=== PATIENT | female | born 1945 | race Caucasian/White ===

== ENCOUNTER 2020-06-30 11:19 | Emergency (ER) | payer MEDICARE, BC ==
--- NOTE | 2020-06-30 11:54 | EDM.PDOC ---
ED HPI GENERAL MEDICAL PROBLEM - General Stated Complaint: AMBULANCE Time Seen by Provider: 06/30/20 11:35 Source of Information: Reports: Patient, Family () History Limitations: Reports: Altered Mental Status - History of Present Illness INITIAL COMMENTS - FREE TEXT/NARRATIVE: This 74 yo female patient was brought to the ED by [facility] due to increased confusion, altered mentation, nausea and pain in her lower back. The patient's reports she started to become confused today and stopped answering questions today also. 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 The patient finished her 15th treatment last week. The patient's reports the patient has been getting worse and worse since her last treatment due to increased nausea. Since last week, the patient has gotten IV fluids and IV potassium, but continues to be ill. The reports he last gave her nausea medications last night. EMS did given her morphine and zofran for her back and right hip pain as well as for nausea. The patient is very delayed at answering questions and very restless while in the bed. The patient was seen in [facility] yesterday, labs were drawn and IV fluid/nausea medications were given. The patient's called the clinic today and was advised to call the ambulance to come to the ED. The patient sees Dr. Diaz with [facility]. Onset: Unknown/Unsure Duration: Day(s):, Constant, Getting Worse Location: Reports: Generalized Quality: Reports: Other Severity: Moderate Improves with: Reports: None Worsens with: Reports: None Context: Reports: Other Associated Symptoms: Reports: No Other Symptoms - Related Data Allergies Allergy/AdvReac Type Severity Reaction Status Date / Time No Known Allergies Allergy Verified 06/30/20 11:38 Home Meds: Home Meds Ascorbate Calcium [Vitamin C] 500 mg PO DAILY 03/07/18 [History] Aspirin 81 mg PO DAILY 03/07/18 [History] Calcium Citrate/Vitamin D3 [Calcium Citrate - Vit D Caplet] 1 tab PO DAILY 03/07/18 [History] Cholecalciferol (Vitamin D3) [Vitamin D3] 2,000 unit PO DAILY 03/07/18 [History] Ferrous Sulfate 325 mg PO TID 03/07/18 [History] Levothyroxine Sodium 88 mcg PO DAILY 03/07/18 [History] Potassium Chloride [Klor-Con M20] 20 meq PO DAILY 03/07/18 [History] atorvaSTATin [Lipitor] 40 mg PO DAILY 03/07/18 [History] hydroCHLOROthiazide [Hydrochlorothiazide] 25 mg PO DAILY 03/07/18 [History] metFORMIN HCl [Metformin HCl] 1,000 mg PO BID 03/07/18 [History] Metoprolol Succinate 50 mg PO DAILY 03/09/18 [History] Pantoprazole Sodium 40 mg PO DAILY 03/09/18 [History] Empagliflozin [Jardiance] 25 mg PO DAILY 06/30/20 [History] LORazepam [Ativan] 1 mg PO Q8HR PRN 06/30/20 [History] Losartan [Cozaar] 50 mg PO DAILY 06/30/20 [History] Ondansetron [Zofran Odt] 8 mg PO Q8HR PRN 06/30/20 [History] Sertraline HCl 50 mg PO DAILY 06/30/20 [History] Past Medical History HEENT History: Reports: Cataract, Impaired Vision Other HEENT History: CORRECTIVE LENS. DENTURE PLATE UPPER. 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 tenosynovitis. osteopenia Neurological History: Reports: None Psychiatric History: Reports: Depression Endocrine/Metabolic History: Reports: Diabetes, Type II, Hypothyroidism Hematologic History: Reports: Iron Deficiency Immunologic History: Reports: None Oncologic (Cancer) History: Reports: None Dermatologic History: Reports: Other (See Below) Other Dermatologic History: hidradenitis suppurativa - Infectious Disease History Infectious Disease History: Reports: Chicken Pox, Measles, Mumps - Past Surgical History Head Surgeries/Procedures: Reports: None HEENT Surgical History: Reports: None Cardiovascular Surgical History: Reports: None Respiratory Surgical History: Reports: None GI Surgical History: Reports: Colonoscopy, EGD, Polypectomy Female Surgical History: Reports: Breast Biopsy, Other (See Below) Other Female Surgeries/Procedures: right breast biopsy Endocrine Surgical History: Reports: None Neurological Surgical History: Reports: None Musculoskeletal Surgical History: Reports: Other (See Below) Other Musculoskeletal Surgeries/Procedures:: Lumbar radicuolopathy Oncologic Surgical History: Reports: None Dermatological Surgical History: Reports: None Social & Family History - Family History Family Medical History: No Pertinent Family History - Caffeine Use Caffeine Use: Reports: Coffee Other Caffeine Use: CUP OR TWO DAILY. SOMETIMES SODA POP ED ROS GENERAL - Review of Systems Review Of Systems: Comprehensive ROS is negative, except as noted in HPI. ED EXAM, GENERAL - Physical Exam Exam: See Below Exam Limited By: Other (The patient is slow at answering questions, but could identify time, place and self.) General Appearance: Alert, Moderate Distress Eye Exam: Bilateral Eye: EOMI, Normal Inspection, PERRL Ears: Normal External Exam, Normal Canal, Hearing Grossly Normal, Normal TMs Nose: Normal Inspection, Normal Mucosa, No Blood Throat/Mouth: Normal Inspection, Normal Lips, Normal Teeth, Normal Gums, Normal Oropharynx, Normal Voice, No Airway Compromise Head: Atraumatic, Normocephalic Neck: Normal Inspection, Supple, Non-Tender, Full Range of Motion Respiratory/Chest: No Respiratory Distress, Lungs Clear, Normal Breath Sounds, No Accessory Muscle Use, Chest Non-Tender Cardiovascular: Normal Peripheral Pulses, Regular Rate, Rhythm, No Edema, No Gallop, No JVD, No Murmur, No Rub GI/Abdominal: Normal Bowel Sounds, Soft, Non-Tender, No Organomegaly, No Distention, No Abnormal Bruit, No Mass (Female) Exam: Deferred Rectal (Female) Exam: Deferred Back Exam: Vertebral Tenderness (generalized back pain) Extremities: Normal Inspection, Limited Range of Motion (patient had difficulties lifting lower extremities off the bed.) Neurological: Alert, Oriented, CN II-XII Intact, Confused, Slow to Respond Psychiatric: Anxious Skin Exam: Warm, Dry, Intact, Normal Color, No Rash Lymphatic: No Adenopathy Course - Vital Signs Last Recorded V/S: Last Vital Signs Temp 35.1 C L 06/30/20 11:43 Pulse 106 H 06/30/20 11:43 Resp 16 06/30/20 11:43 BP 133/68 06/30/20 11:43 Pulse Ox 100 06/30/20 11:43 - Orders/Labs/Meds Orders: Active Orders 24 hr Category Date Time Status Blood Glucose Check, Bedside [RC] ONETIME Care 06/30/20 11:45 Active EKG Documentation Completion [RC] STAT Care 06/30/20 11:23 Active Chest Abdomen Pelvis w Cont [CT] Urgent Exams 06/30/20 14:21 Taken CULTURE BLOOD [BC] Stat Lab 06/30/20 12:23 Ordered CULTURE BLOOD [BC] Stat Lab 06/30/20 12:23 Ordered LACTIC ACID [CHEM] Routine Lab 06/30/20 15:50 Ordered Levofloxacin/Dextrose 5%-Water [Levaquin in D5W 500 MG/ Med 06/30/20 15:35 Ordered 100 ML] 500 mg Premix Bag 1 bag IV ONETIME Blood Culture x2 Reflex Set [OM.PC] Stat Oth 06/30/20 12:23 Ordered Medication Orders Levofloxacin/Dextrose 500 mg/ (Premix) 100 mls @ 100 mls/hr IV ONETIME ONE Stop: 06/30/20 16:34 Labs: Laboratory Tests 06/30/20 06/30/20 06/30/20 Range/Units 11:23 11:49 12:10 WBC 24.7 H (5.0-10.0) 10^3/uL RBC 4.48 (4.2-5.4) 10^6/uL Hgb 14.0 (12.0-16.0) g/dL Hct 44.3 (37.0-47.0) % MCV 98.9 (80-100) fL MCH 31.3 (27.0-34.0) pg MCHC 31.6 L (33.0-35.0) g/dL Plt Count 114 L (150-450) 10^3/uL Neut % (Auto) 90.1 H (42.2-75.2) % Lymph % (Auto) 2.9 L (20.5-50.1) % Clayton % (Auto) 6.4 (2-8) % Eos % (Auto) 0.4 L (1.0-3.0) % Baso % (Auto) 0.2 (0.0-1.0) % Add Manual Diff Yes Neutrophils % (Manual) 84 H (42-75) % Band Neutrophils % 10 % Monocytes % (Manual) 2 (2-8) % Metamyelocytes % 2 Myelocytes % 2 D-Dimer, Quantitative (0-400) ng/mL Sodium (136-145) mmol/L Potassium (3.5-5.1) mmol/L Chloride (98-107) mmol/L Carbon Dioxide (21-32) mmol/L Anion Gap (7-13) mEq/L BUN (7-18) mg/dL Creatinine (0.55-1.02) mg/dL Est Cr Clr Drug Dosing mL/min Estimated GFR (MDRD) BUN/Creatinine Ratio (No establ ref range) Glucose (74-99) mg/dL Lactic Acid (0.4-2.0) mmol/L Calcium (8.5-10.1) mg/dL Total Bilirubin (0.2-1.0) mg/dL AST (15-37) U/L ALT (14-59) U/L Alkaline Phosphatase (46-116) U/L Troponin I (0.000-0.056) ng/mL Total Protein (6.4-8.2) g/dL Albumin (3.4-5.0) g/dL Globulin Albumin/Globulin Ratio Amylase (25-115) U/L Lipase (73-393) U/L Urine Color Yellow (YELLOW) Urine Appearance Clear (CLEAR) Urine pH 5.0 (5.0-9.0) Ur Specific Lincoln >= 1.030 (1.005-1.030) Urine Protein 100 H (NEGATIVE) Urine Glucose (UA) 500 H (NEGATIVE) Urine Ketones >=160 H (NEGATIVE) Urine Occult Blood Moderate H (NEGATIVE) Urine Nitrite Negative (NEGATIVE) Urine Bilirubin Negative (NEGATIVE) Urine Urobilinogen 0.2 (0.2-1.0) mg/dL Ur Leukocyte Esterase Negative (NEGATIVE) Urine RBC 0-5 /HPF Urine WBC 0-5 (0-5/HPF) /HPF Ur Epithelial Cells Rare (NOT SEEN) /HPF Amorphous Sediment Moderate H (NOT SEEN) /HPF Urine Bacteria Rare (0-FEW/HPF) /HPF Urine Mucus Not seen (NOT SEEN) /LPF Urine Yeast Rare H (NOT SEEN) /HPF Urine Opiates Screen (NEGATIVE) Ur Oxycodone Screen (NEGATIVE) Urine Methadone Screen (NEGATIVE) Ur Barbiturates Screen (NEGATIVE) U Tricyclic Antidepress (NEGATIVE) Ur Phencyclidine Scrn (NEGATIVE) Ur Amphetamine Screen (NEGATIVE) U Methamphetamines Scrn (NEGATIVE) Urine MDMA Screen (NEGATIVE) U Benzodiazepines Scrn (NEGATIVE) Urine Cocaine Screen (NEGATIVE) U Marijuana (THC) Screen (NEGATIVE) SARS CoV-2 RNA Rapid TANA Positive H (NEGATIVE) 06/30/20 06/30/20 06/30/20 Range/Units 12:10 12:10 12:10 WBC (5.0-10.0) 10^3/uL RBC (4.2-5.4) 10^6/uL Hgb (12.0-16.0) g/dL Hct (37.0-47.0) % MCV (80-100) fL MCH (27.0-34.0) pg MCHC (33.0-35.0) g/dL Plt Count (150-450) 10^3/uL Neut % (Auto) (42.2-75.2) % Lymph % (Auto) (20.5-50.1) % Clayton % (Auto) (2-8) % Eos % (Auto) (1.0-3.0) % Baso % (Auto) (0.0-1.0) % Add Manual Diff Neutrophils % (Manual) (42-75) % Band Neutrophils % % Monocytes % (Manual) (2-8) % Metamyelocytes % Myelocytes % D-Dimer, Quantitative > 5000 H (0-400) ng/mL Sodium 141 (136-145) mmol/L Potassium 3.8 (3.5-5.1) mmol/L Chloride 107 (98-107) mmol/L Carbon Dioxide 5 L* (21-32) mmol/L Anion Gap 32.8 H (7-13) mEq/L BUN 18 (7-18) mg/dL Creatinine 0.82 (0.55-1.02) mg/dL Est Cr Clr Drug Dosing 52.76 mL/min Estimated GFR (MDRD) > 60 BUN/Creatinine Ratio 22.0 (No establ ref range) Glucose 239 H (74-99) mg/dL Lactic Acid 3.9 H* (0.4-2.0) mmol/L Calcium 9.4 (8.5-10.1) mg/dL Total Bilirubin 0.4 (0.2-1.0) mg/dL AST 16 (15-37) U/L ALT 16 (14-59) U/L Alkaline Phosphatase 101 (46-116) U/L Troponin I < 0.017 (0.000-0.056) ng/mL Total Protein 7.8 (6.4-8.2) g/dL Albumin 2.5 L (3.4-5.0) g/dL Globulin 5.3 Albumin/Globulin Ratio 0.47 Amylase 47 (25-115) U/L Lipase 202 (73-393) U/L Urine Color (YELLOW) Urine Appearance (CLEAR) Urine pH (5.0-9.0) Ur Specific Lincoln (1.005-1.030) Urine Protein (NEGATIVE) Urine Glucose (UA) (NEGATIVE) Urine Ketones (NEGATIVE) Urine Occult Blood (NEGATIVE) Urine Nitrite (NEGATIVE) Urine Bilirubin (NEGATIVE) Urine Urobilinogen (0.2-1.0) mg/dL Ur Leukocyte Esterase (NEGATIVE) Urine RBC /HPF Urine WBC (0-5/HPF) /HPF Ur Epithelial Cells (NOT SEEN) /HPF Amorphous Sediment (NOT SEEN) /HPF Urine Bacteria (0-FEW/HPF) /HPF Urine Mucus (NOT SEEN) /LPF Urine Yeast (NOT SEEN) /HPF Urine Opiates Screen (NEGATIVE) Ur Oxycodone Screen (NEGATIVE) Urine Methadone Screen (NEGATIVE) Ur Barbiturates Screen (NEGATIVE) U Tricyclic Antidepress (NEGATIVE) Ur Phencyclidine Scrn (NEGATIVE) Ur Amphetamine Screen (NEGATIVE) U Methamphetamines Scrn (NEGATIVE) Urine MDMA Screen (NEGATIVE) U Benzodiazepines Scrn (NEGATIVE) Urine Cocaine Screen (NEGATIVE) U Marijuana (THC) Screen (NEGATIVE) SARS CoV-2 RNA Rapid TANA (NEGATIVE) 06/30/20 Range/Units 12:20 WBC (5.0-10.0) 10^3/uL RBC (4.2-5.4) 10^6/uL Hgb (12.0-16.0) g/dL Hct (37.0-47.0) % MCV (80-100) fL MCH (27.0-34.0) pg MCHC (33.0-35.0) g/dL Plt Count (150-450) 10^3/uL Neut % (Auto) (42.2-75.2) % Lymph % (Auto) (20.5-50.1) % Clayton % (Auto) (2-8) % Eos % (Auto) (1.0-3.0) % Baso % (Auto) (0.0-1.0) % Add Manual Diff Neutrophils % (Manual) (42-75) % Band Neutrophils % % Monocytes % (Manual) (2-8) % Metamyelocytes % Myelocytes % D-Dimer, Quantitative (0-400) ng/mL Sodium (136-145) mmol/L Potassium (3.5-5.1) mmol/L Chloride (98-107) mmol/L Carbon Dioxide (21-32) mmol/L Anion Gap (7-13) mEq/L BUN (7-18) mg/dL Creatinine (0.55-1.02) mg/dL Est Cr Clr Drug Dosing mL/min Estimated GFR (MDRD) BUN/Creatinine Ratio (No establ ref range) Glucose (74-99) mg/dL Lactic Acid (0.4-2.0) mmol/L Calcium (8.5-10.1) mg/dL Total Bilirubin (0.2-1.0) mg/dL AST (15-37) U/L ALT (14-59) U/L Alkaline Phosphatase (46-116) U/L Troponin I (0.000-0.056) ng/mL Total Protein (6.4-8.2) g/dL Albumin (3.4-5.0) g/dL Globulin Albumin/Globulin Ratio Amylase (25-115) U/L Lipase (73-393) U/L Urine Color (YELLOW) Urine Appearance (CLEAR) Urine pH (5.0-9.0) Ur Specific Lincoln (1.005-1.030) Urine Protein (NEGATIVE) Urine Glucose (UA) (NEGATIVE) Urine Ketones (NEGATIVE) Urine Occult Blood (NEGATIVE) Urine Nitrite (NEGATIVE) Urine Bilirubin (NEGATIVE) Urine Urobilinogen (0.2-1.0) mg/dL Ur Leukocyte Esterase (NEGATIVE) Urine RBC /HPF Urine WBC (0-5/HPF) /HPF Ur Epithelial Cells (NOT SEEN) /HPF Amorphous Sediment (NOT SEEN) /HPF Urine Bacteria (0-FEW/HPF) /HPF Urine Mucus (NOT SEEN) /LPF Urine Yeast (NOT SEEN) /HPF Urine Opiates Screen Positive H (NEGATIVE) Ur Oxycodone Screen Negative (NEGATIVE) Urine Methadone Screen Negative (NEGATIVE) Ur Barbiturates Screen Negative (NEGATIVE) U Tricyclic Antidepress Negative (NEGATIVE) Ur Phencyclidine Scrn Negative (NEGATIVE) Ur Amphetamine Screen Negative (NEGATIVE) U Methamphetamines Scrn Negative (NEGATIVE) Urine MDMA Screen Negative (NEGATIVE) U Benzodiazepines Scrn Negative (NEGATIVE) Urine Cocaine Screen Negative (NEGATIVE) U Marijuana (THC) Screen Negative (NEGATIVE) SARS CoV-2 RNA Rapid TANA (NEGATIVE) Meds: Medications Generic Name Dose Route Start Last Admin Trade Name Freq PRN Reason Stop Dose Admin Levofloxacin/Dextrose 500 mg/ 100 mls @ 100 mls/hr 06/30/20 15:35 Premix IV 06/30/20 16:34 ONETIME ONE Discontinued Medications Generic Name Dose Route Start Last Admin Trade Name Freq PRN Reason Stop Dose Admin Iopamidol 100 ml 06/30/20 14:21 06/30/20 14:59 Isovue-370 (76%) IVPUSH 06/30/20 14:22 100 ml ONETIME ONE Administration - Re-Assessments/Exams Free Text/Narrative Re-Assessment/Exam: 06/30/20 14:29 Discussed the initial labs with the patient's . The patient will be going to have a CT of her chest, abdomen and pelvis to fully evaluate possible sources of infection. Departure - Departure Time of Disposition: 15:54 Disposition: DC/Tfer to [facility] 02 Condition: Serious Clinical Impression: Pneumonia due to 2019 novel coronavirus - Discharge Information *PRESCRIPTION DRUG MONITORING PROGRAM REVIEWED*: Not Applicable *COPY OF PRESCRIPTION DRUG MONITORING REPORT IN PATIENT [place]: Not Applicable Forms: Interfacility Transfer [facility] Care Plan Goals: Discussed the patient's history, examination, lab and CT results with Dr. Singh (Hospitalist with [facility] in [place]). Dr. Singh accepted the patient for continued evaluation and management as an inpatient at [facility]. The patient will be transported by [facility]. Sepsis Event Note (ED) - Focused Exam Vital Signs: Vital Signs Temp Pulse Resp BP Pulse Ox 06/30/20 11:43 35.1 C L 106 H 16 133/68 100 - My Orders Last 24 Hours: My Active Orders 06/30/20 11:23 EKG Documentation Completion [RC] STAT 06/30/20 11:45 Blood Glucose Check, Bedside [RC] ONETIME 06/30/20 12:23 CULTURE BLOOD [BC] Stat CULTURE BLOOD [BC] Stat Blood Culture x2 Reflex Set [OM.PC] Stat 06/30/20 14:21 Chest Abdomen Pelvis w Cont [CT] Urgent 06/30/20 15:35 Levofloxacin/Dextrose 5%-Water [Levaquin in D5W 500 MG/100 ML] 500 mg Premix Bag 1 bag IV ONETIME 06/30/20 15:50 LACTIC ACID [CHEM] Routine - Assessment/Plan Last 24 Hours: My Active Orders 06/30/20 11:23 EKG Documentation Completion [RC] STAT 06/30/20 11:45 Blood Glucose Check, Bedside [RC] ONETIME 06/30/20 12:23 CULTURE BLOOD [BC] Stat CULTURE BLOOD [BC] Stat Blood Culture x2 Reflex Set [OM.PC] Stat 06/30/20 14:21 Chest Abdomen Pelvis w Cont [CT] Urgent 06/30/20 15:35 Levofloxacin/Dextrose 5%-Water [Levaquin in D5W 500 MG/100 ML] 500 mg Premix Bag 1 bag IV ONETIME 06/30/20 15:50 LACTIC ACID [CHEM] Routine
--- NOTE | 2020-06-30 12:10 | CT ---
EXAMINATION: Head wo Cont SEX: Female AGE: 74 years CLINICAL HISTORY: 74-year-old female emergency department with altered mentation. Scan technique: Volume acquisition of data unenhanced screening CT scan of the head and brain obtained with patient lying supine on the Siemens multislice scanner [place], [place]. All data archived in the PACS system for storage, reformatting axial/sagittal/coronal planes and study (bone/soft tissue windows). Interpretation: 1. Subtle scattered tiny foci of decreased attenuation throughout the periventricular white matter both cerebral hemisphere characteristic of microvascular ischemic change (infarct). Hypertension? Diabetes? 2. Mild atrophy pattern symmetric and consistent with age. Underlying mirror-image normal ventricles. 3. No supratentorial or posterior fossa mass lesion. 4. No sign of acute intracerebral, intraventricular or subarachnoid bleed. 5. Interval placement 6 bony calvarium. No sign of skull fracture, underlying brain contusion or abnormal extracerebral/intracranial epidural or subdural hematoma. 6. Symmetric clear pneumatization of the paranasal and mastoid sinuses. Normal TMJs. CONCLUSION: Signs of aging (atrophy and microvascular ischemic changes). No intracranial mass, hydrocephalus or bleed.
[2020-06-30 12:42] LABS: CHLORIDE,CL 107 mmol/L (98-107); SODIUM,NA 141 mmol/L (136-145)
[2020-06-30 13:35] LABS: ANION GAP 32.8 mEq/L (7-13)
[2020-06-30] MEDS ORDERED: Iopamidol 755 Mg/ML 100 ML Bottle IVPUSH ONE (14:21)
[2020-06-30] MEDS ORDERED: Levofloxacin/Dextrose 5%-Water 500 MG in Premix Bag 1 BAG IV ONE (15:35)
--- NOTE | 2020-06-30 15:56 | CT ---
EXAMINATION: Chest Abdomen Pelvis w Cont SEX: Female AGE: 74 years CLINICAL HISTORY: 74-year-old hypertensive, diabetic female with history of iron deficiency anemia and shortness of breath who is COVID +, has an elevated WBC and serum D dimer greater than 5000. Patient is immunosuppressed having recently completed therapy for non-Hodgkin's lymphoma. Scan technique: Volume acquisition of data from the chest (bony thorax, lungs and mediastinum), abdomen and pelvis obtained during/after the intravenous administration 100 cc nonionic Isovue 370 at 4.4 cc/s via injector while patient was lying supine on the Siemens multislice scanner [place], [place]. All data archived in the PACS system for storage, reformatting axial/sagittal/coronal planes and study (lung/mediastinal windows). Interpretation: Abnormal. 1. Huge hiatus hernia incarcerated in the lower middle mediastinum. Remainder stomach is distended. 2. No sign of intraluminal filling defect or thrombus identified in proximal (main) pulmonary artery segments. No focal lobar oligemia or peripheral pleural-based wedge shaped infarcts. No pleural effusions. 3. Multiple small scattered peripheral subpleural interstitial-nodular densities and while these are not typical "groundglass" they are suspicious for probable vasculitis and Covid pneumonia. 4. No dominant malignant-appearing lung mass, hilar/mediastinal lymphadenopathy, proximal lobar pneumonia or air bronchograms. No atelectasis/collapse. 5. Normal cardiac silhouette. No pericardial effusion. No pulmonary vascular congestion or alveolar edema. 6. No pneumothorax or pneumomediastinum. No free subdiaphragmatic air. Osteopenia. 7. Contracted gallbladder RUQ (axial slice #2; Coronal #23) unremarkable. *Small central intrahepatic "cyst" near the quentin hepatis (?). Spleen and pancreas unremarkable. Normal adrenal glands. Isolated 15 mm cyst lower pole right kidney. No sign of urolithiasis or obstructive uropathy. No pyelonephritis. Negative bladder. 8. No pelvic or abdominal mass lesion, mesenteric or retroperitoneal lymphadenopathy, signs of diverticulitis or peritonitis, no mechanical bowel obstruction, ascites or free intraperitoneal air. Negative appendix RLQ. 9. Densely calcified "cast" aortoiliac vessels. No aneurysm or dissection. Multilevel lower lumbar disc disease. CONCLUSION: Abnormal lung mendosa (peripheral densities). See above. Huge Hiatus hernia. Small central "cyst" lesion, right lobe liver. Solitary benign-appearing cyst lower pole right kidney. No sign of primary or metastatic malignancy lungs, abdomen or pelvis. No lobar pneumonia or acute peritonitis. No CHF.
== END 2020-06-30 16:53 ==
LOC: DL.ED 11:19
DX: U07.1 COVID-19 (principal); J12.89 Other viral pneumonia; M54.5 Low back pain; I10 Essential (primary) hypertension; E78.00 Pure hypercholesterolemia, unspecified; K21.9 Gastro-esophageal reflux disease without esophagitis; F32.9 Major depressive disorder, single episode, unspecified; E11.9 Type 2 diabetes mellitus without complications; E03.9 Hypothyroidism, unspecified; Z79.82 Long term (current) use of aspirin; Z79.899 Other long term (current) drug therapy
CPT/HCPCS: 36415; 70450; 71260; 74177; 80053; 80305; 81001; 82150; 82962; 83605; 83690; 84484; 85025; 85379; 87040; 93005; 96365; 99285; J1956; Q9967; U0002

== ENCOUNTER 2024-05-12 10:58 | Emergency (ER) | payer MEDICARE, BC ==
[2024-05-12] MEDS: Acetaminophen 500 MG Tab PO ONE (11:29)
[2024-05-12 11:37] LABS: BASOPHILS PERCENT AUTO 0.3 % (0.0-1.0); EOSINOPHILS PERCENT AUTO 0.1 % (1.0-3.0); HEMATOCRIT 27.8 % (37.0-47.0); HEMOGLOBIN 8.5 g/dL (12.0-16.0); LYMPHOCYTES PERCENT AUTO 11.4 % (20.5-50.1); MEAN CORPUSCULAR HEMOGLOBIN 22.2 pg (27.0-34.0); MEAN CORPUSCULAR HGB CONC 30.6 g/dL (33.0-35.0); MEAN CORPUSCULAR VOLUME 72.6 fL (80-100); MONOCYTES PERCENT AUTO 12.7 % (2-8); NEUTROPHILS PERCENT AUTO 75.5 % (42.2-75.2); PLATELET COUNT,PLT 273 10^3/uL (150-450); RED BLOOD CELL COUNT 3.83 10^6/uL (4.2-5.4); WHITE BLOOD CELL COUNT,WBC 10.5 10^3/uL (5.0-10.0)
[2024-05-12 11:56] LABS: ALBUMIN 3.1 g/dL (3.4-5.0); ANION GAP 14.4 mEq/L (7-13); BILIRUBIN TOTAL 0.6 mg/dL (0.2-1.0); C-REACTIVE PROTEIN 4.73 ng/dL (<=0.50); CALCIUM 9.3 mg/dL (8.5-10.1); CREATININE 0.93 mg/dL (0.55-1.02); EST CRCL DRUG DOSING (CG) 40.07 mL/min; POTASSIUM,K 2.4 mmol/L (3.5-5.1); PROTEIN TOTAL,TP 6.8 g/dL (6.4-8.2); URIC ACID 4.1 mg/dL (2.6-6.0)
[2024-05-12 11:57] LABS: A/G RATIO 0.84
[2024-05-12] MEDS: Potassium Chloride 10 MEQ Tab.ER PO ONE (12:10)
[2024-05-12] MEDS: Magnesium Oxide 400 MG Tab PO SCH (12:11)
[2024-05-12] MEDS: Magnesium Oxide 400 MG Tab ONE (12:12)
[2024-05-12] MEDS: Colchicine 0.6 MG Tab PO ONE ×2 (12:15→13:36)
[2024-05-12] MEDS ORDERED: Magnesium Oxide 400 MG Tab PO SCH (18:00)
== END 2024-05-12 14:39 | disposition home or self-care (01) ==
LOC: DL.ED 10:58
DX: M10.9 Gout, unspecified (principal); M19.90 Unspecified osteoarthritis, unspecified site
CPT/HCPCS: 36415; 73110-RT; 80053; 84550; 85025; 86140; 99283; A9270-GY